=== PATIENT | female | born 1945 | race Caucasian/White ===

== ENCOUNTER 2018-09-02 14:23 | Inpatient (IN) ==
[2018-09-02] MEDS ORDERED: ceFAZolin 2 GM Premix Inj 2 GM/50 ML PIGGYBACK IV.SIG ONE (14:51)
[2018-09-02] MEDS ORDERED: Gentamicin/NS 80 mg Premix 100 ML IV.SIG ONE (14:55)
--- NOTE | 2018-09-02 15:02 | ED ---
HPI General Chief Complaint: Extremity Injury, Upper Stated Complaint: fall poss broken rt wrist Time Seen by Provider: 09/02/18 14:46 Source: patient Mode of arrival: ambulatory Limitations: no limitations History of Present Illness HPI narrative: Patient presents with complaints of right wrist fracture. States she was walking backwards when she stumbled and fell. States she thinks she got her hand out behind her to break her fall. Past medical history for Parkinson's. Denies osteoporosis. Denies any head trauma. Denies any loss of consciousness. Denies any new chest pain shortness of breath urinary or bowel symptoms. Last meal 11 AM/4 hours ago. Tetanus is not up-to-date MD complaint: injury to: Reports right and wrist Onset (ago): minute(s) (30) Other Extremity Injury: Right: wrist Other injuries: Reports none Handedness: right Place: outdoors Severity: severe Severity scale (1-10): 10 Relieving factors: cold therapy Exacerbating factors: movement of extremity Context: Reports fall Associated symptoms: Reports denies other symptoms Treatments prior to arrival: Reports cold therapy Related Data Home Medications Medication Instructions Recorded Confirmed carbidopa-levodopa tab PO QID 09/02/18 Allergies Allergy/AdvReac Type Severity Reaction Status Date / Time No Known Allergies Allergy Verified 09/02/18 14:51 Review of Systems ROS: all other systems reviewed are negative PMFSH Medical History Medical History Parkinson disease (Acute) Surgical History Surgical History No history of previous surgery (Acute) Social History Social History Substance History: No History of Abuse Second Hand Smoke Exposure: No Smoking Status: Never smoker How Often Do You Have a Drink Containing Alcohol: 4 or more times a week Recent Travel in [place] within the Last 8 Weeks: No Recent Out of Country Travel within the Last 8 Weeks: No Immunization History Tetanus Immunization: Unsure Exam Narrative Exam Narrative: GENERAL: Well-nourished, well-developed patient. SKIN: Focused skin assessment warm/dry. HEAD: Normocephalic. EYES: No scleral icterus. No injection or drainage. NECK: Supple, trachea midline. No JVD or lymphadenopathy. CARDIOVASCULAR: Regular rate and rhythm without murmurs, gallops, or rubs. RESPIRATORY: Breath sounds equal bilaterally. No accessory muscle use. GASTROINTESTINAL: Abdomen soft, normal bowel sounds, non-tender, nondistended. MUSCULOSKELETAL: No cyanosis, or edema. BACK: Nontender without obvious deformity. No CVA tenderness. Examination of the right wrist reveals an open gooseneck fracture with good radial pulse and capillary refill. Limited finger movement. Bleeding is controlled. Course Initial Documented Vital Signs Temperature 97.5 F L 09/02/18 14:36 Pulse Rate 71 09/02/18 14:36 Respiratory Rate 20 09/02/18 14:36 Blood Pressure 101/56 L 09/02/18 14:36 Pulse Oximetry 97 09/02/18 14:36 Last Documented Vital Signs Temperature 97.5 F L 09/02/18 14:36 Pulse Rate 71 09/02/18 14:36 Respiratory Rate 20 09/02/18 14:36 Blood Pressure 101/56 L 09/02/18 14:36 Pulse Oximetry 97 09/02/18 14:36 Medical Decision Making MDM Narrative Medical decision making narrative: Patient received IV Ancef and gentamicin. PCP is Wood. Dr. Higuera who is in agreement will admit. Consents were obtained prior to pain medication. Pain controlled with morphine. Patient made n.p.o. , sugar tong in place. Spoke with Dr. Ham who is in agreement will admit and [facility]. Medical Screen Exam Complete: Yes Emergency Medical Condition: Yes Differential Diagnosis Differential Diagnosis: Open ulnar fracture, open radial fracture, wrist dislocation Medical Records Medical records reviewed: Yes I reviewed the patient's medical records. Lab Data Result diagrams: 09/02/18 15:40 09/02/18 15:40 Lab Results 09/02/18 Range/Units 15:40 CBC w Diff Auto diff final WBC 6.5 (4.0-11.0) th/mm3 RBC 4.16 (4.00-5.30) mil/mm3 Hgb 13.5 (11.6-15.3) gm/dL Hct 40.1 (35.0-46.0) % MCV 96.4 (80.0-100.0) fL MCH 32.5 (27.0-34.0) pg MCHC 33.7 (32.0-36.0) % RDW 12.2 (11.6-17.2) % Plt Count 160 (150-450) th/mm3 MPV 9.7 (7.0-11.0) fL Neut % (Auto) 56.4 (16.0-70.0) % Lymph % (Auto) 33.1 (9.0-44.0) % [place] % (Auto) 7.9 (0.0-8.0) % Eos % (Auto) 1.4 (0.0-4.0) % Baso % (Auto) 1.2 (0.0-2.0) % Neut # (Auto) 3.7 (1.8-7.7) th/mm3 Lymph # (Auto) 2.1 (1.0-4.8) th/mm3 [place] # (Auto) 0.5 (0.0-0.9) th/mm3 Eos # (Auto) 0.1 (0.0-0.4) th/mm3 Baso # (Auto) 0.1 (0.0-0.2) th/mm3 WBC Differential . Differential Comment . Imaging Data Radiologist's impression: Wrist X-Ray 09/02/18 14:49 CONCLUSION: Right wrist fracture dislocation. Discharge Plan Discharge Disposition Patient Disposition: ED Admit(ED Internal Use Only) Discharge Condition Condition: Stable Discharge Order Discharge Orders: ED Use Only Admit Order (Routine); Ordered 09/02/18 Ordered By: Ted Nair Physicians Team ED Provider: Ted Nair Primary Care Provider: Anthony Muir Rxs /Orders / Referrals /Forms Prescriptions: No Action carbidopa-levodopa 25-100 mg Tablet PO QID RF: 0 Status ED Status: With Doctor
[2018-09-02] MEDS ORDERED: Morphine Sulfate Inj 2 MG/ML Vial IV.PUSH ONE ×2 (15:18→16:27)
--- NOTE | 2018-09-02 15:24 | XR ---
EXAM DATE: 09/02/2018 3:13 PM EST AGE/SEX: 73 years / Female INDICATIONS: Fell today, Right wrist injury, open fracture CLINICAL DATA: This is the patient's initial encounter. Patient reports that signs and symptoms have been present for 1 day and indicates a pain score of 9/10. MEDICAL/SURGICAL HISTORY: None. None. COMPARISON: [facility], WRIST LEFT COMPLETE ([id number]), 05/16/2015. . FINDINGS: 2 views of the right wrist. Fracture dislocation at the wrist noted with horizontal fracture of the d istal radius 1 cm proximal to the radiocarpal joint. One bone width lateral displacement of the dista l fragment of the radius. Lateral dislocation of the proximal carpal row relative to the ulna. CONCLUSION: Right wrist fracture dislocation. Electronically signed by: Chacorta Hart MD Board Certified Radiologist 09/02/2018 3:22 PM EST
[2018-09-02] MEDS ORDERED: Tetanus/Diphtheria Toxoid Adult Vaccine Inj 0.5 ML Vial IM ONE (15:45)
[2018-09-02 15:53] LABS: Baso # (Auto) 0.1 th/mm3 (0.0-0.2); Baso % (Auto) 1.2 % (0.0-2.0); Eos # (Auto) 0.1 th/mm3 (0.0-0.4); Eos % (Auto) 1.4 % (0.0-4.0); Hematocrit 40.1 % (35.0-46.0); Hemoglobin 13.5 gm/dL (11.6-15.3); Lymph # (Auto) 2.1 th/mm3 (1.0-4.8); Lymph % (Auto) 33.1 % (9.0-44.0); Mean Corpuscular HGB Conc 33.7 % (32.0-36.0); Mean Corpuscular Hemoglobin 32.5 pg (27.0-34.0); Mean Corpuscular Volume 96.4 fL (80.0-100.0); Mean Platelet Volume 9.7 fL (7.0-11.0); Mono # (Auto) 0.5 th/mm3 (0.0-0.9); Mono % (Auto) 7.9 % (0.0-8.0); Neut # (Auto) 3.7 th/mm3 (1.8-7.7); Neut % (Auto) 56.4 % (16.0-70.0); Platelet Count 160 th/mm3 (150-450); Red Blood Count 4.16 mil/mm3 (4.00-5.30); Red Cell Distribution Width 12.2 % (11.6-17.2); White Blood Count 6.5 th/mm3 (4.0-11.0)
[2018-09-02 16:08] LABS: Potassium 4.1 meq/L (3.5-5.1)
[2018-09-02] MEDS ORDERED: Acetaminophen 325 MG Tablet PO PRN (16:08)
[2018-09-02] MEDS ORDERED: Bisacodyl 10 MG Supp RECTAL PRN (16:08)
[2018-09-02 16:11] LABS: Calcium 9.1 mg/dL (8.5-10.1); INR 1.1 Ratio; Prothrombin Time 10.8 sec (9.8-11.6)
[2018-09-02 16:12] LABS: Carbon Dioxide 26.2 meq/L (21.0-32.0)
[2018-09-02] MEDS: Sod Chloride 0.9% Inj 1,000 ML IV.CONT SCH ×2 (17:07→22:46)
[2018-09-02] MEDS ORDERED: Morphine Sulfate Inj 2 MG/ML Vial IV.PUSH PRN (19:42)
[2018-09-02] MEDS ORDERED: Metoprolol Tartrate 25 MG Tablet PO ONE (19:59)
[2018-09-02] MEDS ORDERED: Chlorhexidine Gluconate 2% 1 Pack (2 Cloths) TOPICAL ONE (19:59)
[2018-09-02] MEDS ORDERED: Sodium Chlor 0.9% Inj 500 ML IV.SIG SCH (20:00)
[2018-09-02] MEDS ORDERED: Lidocaine PF 1% Inj 5 ML Syringe OTHER ONE (20:30)
[2018-09-02] MEDS ORDERED: Neostigmine Inj 5 MG/5 ML Syringe IV.PUSH ONE (20:30)
[2018-09-02] MEDS ORDERED: Glycopyrrolate Inj 1 MG/5 ML Syringe IV.PUSH ONE (20:30)
[2018-09-02] MEDS ORDERED: Phenylephrine/NS 1000 MCG/10ML Syringe IV.PUSH ONE (20:30)
--- NOTE | 2018-09-02 20:40 | P.CONOP ---
[facility] Orthopedics Consult [facility] - [facility] Consult date: 09/02/18 Consult reason: fracture Chief complaint: Open distal radial fracture Narrative: 73-year-old female who presents with complaints of right wrist pain. States she was walking backwards when she stumbled and fell. States she thinks she got her hand out behind her to break her fall. Past medical history for Parkinson's. Denies osteoporosis. Denies any head trauma. Denies any loss of consciousness. Denies any new chest pain shortness of breath urinary or bowel symptoms. Last meal 11 AM/4 hours ago. Tetanus is not up-to-date. Patient denies any head trauma. Review of Systems Denies fevers, chills, nausea, vomiting. Denies chest pain, cough, shortness of breath. Denies abdominal pain or change in urination. Denies back pain, weakness, numbness or tingling. Denies dizziness, blurry vision or throat pain. Reports right wrist pain PMFSH - History History Provided By: Patient - Medical History Medical History: Medical History (Last Reviewed 09/02/18 @ 14:59 by Ted Nair MD) Parkinson disease - Surgical History Surgical History: Surgical History (Last Reviewed 09/02/18 @ 14:59 by Ted Nair MD) No history of previous surgery - Tobacco History Second Hand Smoke Exposure: No Smoking Status: Never smoker - Alcohol History How Often Do You Have a Drink Containing Alcohol: 2 to 4 times a month - Substance Use History Substance History: No History of Abuse - Travel History Recent Travel in the [place] Within the Last 8 Weeks: No Recent Travel Out of the Country Within the Last 8 Weeks: No - Immunization History Tetanus Immunization: Unsure Hx Influenza Vaccine This Season: Yes Medications and Allergies Active Medications: Active Medications Acetaminophen (Tylenol) 650 mg PO Q4H PRN PRN Reason: Temp > 100.4 Al Hydroxide/Mg Hydroxide (Milk Of Magnesia Liq) 30 ml PO Q12H PRN PRN Reason: Mild Constipation Bisacodyl (Dulcolax Supp) 10 mg RECTAL DAILY PRN PRN Reason: SEVERE CONSITIPATION Sodium Chloride (Ns Inj) 1,000 mls @ 70 mls/hr IV.CONT .[id number] [facility] Last Admin: 09/02/18 17:07 Dose: 70 mls/hr Lactated Ringer's (Lr 1000 Ml Inj) 1,000 mls @ 30 mls/hr IV.SIG .Q24H [facility] Stop: 09/03/18 19:59 Sodium Chloride (Ns Inj) 500 mls @ 30 mls/hr IV.SIG .Q10H [facility] Lactulose (Lactulose Liq) 30 ml PO DAILY PRN PRN Reason: SEVERE CONSITIPATION Morphine Sulfate (Morphine Inj) 2 mg IV.PUSH Q3H PRN PRN Reason: pain > 3 Ondansetron HCl (Zofran Inj) 4 mg IV.PUSH Q6H PRN PRN Reason: NAUSEA OR VOMITING Senna/Docusate Sodium (Mima-Colace) 1 tab PO BID [facility] Sennosides (Senokot) 17.2 mg PO Q12H PRN PRN Reason: Moderate Constipation Sodium Chloride (Ns Flush) 2 ml IV.FLUSH BID [facility] Sodium Chloride (Ns Flush) 2 ml IV.FLUSH PRN PRN PRN Reason: FLUSH AFTER USING IV ACCESS Allergies Allergy/AdvReac Type Severity Reaction Status Date / Time No Known Allergies Allergy Verified 09/02/18 14:51 Home Medications Medication Instructions Recorded Confirmed Type carbidopa-levodopa tab PO QID 09/02/18 History Exam Vital signs: Vital Signs 09/02/18 14:36 09/02/18 17:44 09/02/18 18:32 Temperature 97.5 F L 97.1 F L Pulse Rate 71 87 86 Respiratory Rate 20 16 Blood Pressure 101/56 L 147/66 H 146/68 H Pulse Oximetry 97 97 98 Intake & Output 09/02/18 09/02/18 09/03/18 06:59 18:59 06:59 Intake Total 50 / 50 Balance 50 / 50 Weight 74 kg 74 kg Intake: IV 50 / 50 Ancef 2 GM Premix Inj 2 gm In 50 / 50 50 ml @ 100 mls/hr IV.SIG ONCE ONE Rx#:[id number] Other: Date of Last Bowel Movement 08/31/18 Weight On Admission 74 kg Narrative: Awake, alert, no acute distress Normocephalic Pupils equal No JVD Moist mucous membranes Nonlabored respirations Soft nontender abdomen Regular rate Right upper extremity: No tenderness to palpation or visible deformities. Full active range of motion and strength throughout. Sensation intact. Brisk cap refill. Left upper extremity:No tenderness to palpation or visible deformities. Full active range of motion and strength throughout. Sensation intact. Brisk cap refill. Right lower extremity: Deformity at the wrist with small wound concerning for open fracture. Patient is unable to wiggle fingers due to pain. Sensation appears grossly intact. Brisk cap refill Left lower extremity:No tenderness to palpation or visible deformities. Full active range of motion and strength throughout. Sensation intact. Brisk cap refill. No rash Normal affect Results - Labs Result Diagrams: 09/02/18 15:40 09/02/18 15:40 Labs: Laboratory Results - last 24 hr 09/02/18 09/02/18 09/02/18 15:40 15:40 15:40 CBC w Diff Auto diff final WBC 6.5 RBC 4.16 Hgb 13.5 Hct 40.1 MCV 96.4 MCH 32.5 MCHC 33.7 RDW 12.2 Plt Count 160 MPV 9.7 Neut % (Auto) 56.4 Lymph % (Auto) 33.1 [place] % (Auto) 7.9 Eos % (Auto) 1.4 Baso % (Auto) 1.2 Neut # (Auto) 3.7 Lymph # (Auto) 2.1 [place] # (Auto) 0.5 Eos # (Auto) 0.1 Baso # (Auto) 0.1 WBC Differential . Differential Comment . PT 10.8 INR 1.1 Sodium 145 Potassium 4.1 Chloride 111 H Carbon Dioxide 26.2 Anion Gap 8 BUN 21 H Creatinine 0.66 Estimated GFR 88 L Random Glucose 103 Calcium 9.1 - Diagnostic results Imaging: Impressions Wrist X-Ray 09/02/18 14:49 CONCLUSION: Right wrist fracture dislocation. Assessment and Plan - Assessment and Plan 73-year-old female with open right distal radius fracture Options of management were discussed with the patient. Given the open nature of her fracture, I have recommended urgent surgical intervention in the form of irrigation and debridement with open reduction internal fixation of her right distal radius fracture. Risks, benefits, alternatives were discussed. Risks of surgery including but not limited to: Persistent infection, neurovascular injury, wrist pain and/or stiffness, hardware malposition or failure, nonunion and/or malunion, possible need for further surgery, and other unforeseen complications were discussed with the patient. At this time patient has been n.p.o. since approximately 11 AM with plan for surgery today.
[2018-09-02] MEDS ORDERED: Bupivacaine/Epinephrine PF Inj 0.5% 30 ML Vial ONE (21:08)
[2018-09-02] MEDS ORDERED: Post-op Orders (for Pharmacy) OTHER STA (22:18)
--- NOTE | 2018-09-02 22:18 | P.BOP ---
Date of procedure: 09/02/18 Procedure: 1. I&D R wrist 2. ORIF R intra-articular DR saini, >3-part Implants: Synthes Anesthesia: GETA Surgeon: Sonia Ham MD Estimated blood loss (mL): 5 Tourniquet time (min): 65 Pathology: none sent Condition: stable Disposition: PACU
[2018-09-02] MEDS ORDERED: fentaNYL Citrate Inj 100 MCG/2 ML Ampul ONE (22:33)
--- NOTE | 2018-09-02 22:36 | XR ---
EXAM DATE: 09/02/2018 10:33 PM EST AGE/SEX: 73 years / Female INDICATIONS: ORIF right wrist. CLINICAL DATA: This is the patient's subsequent encounter. Patient reports that signs and symptoms h ave been present for 1 day and indicates a pain score of Nonresponsive. MEDICAL/SURGICAL HISTORY: None. None. COMPARISON: No prior exams available for comparison. FINDINGS: 2 images are recorded digitally in the operating room with C-arm during placement of a distal radial plate. CONCLUSION: Intraoperative images. Electronically signed by: Riley Hendricks MD Board Certified Radiologist 09/02/2018 10:35 PM EST
--- NOTE | 2018-09-02 23:51 | P.HPIM ---
History of Present Illness Primary Care Physician: Anthony Muir MD Ms. Rosales is a 73 year-old female who presented to the emergency room and [place] complaining of right wrist fracture. She was found to have an open right wrist fracture dislocation and was transferred to [facility] where she underwent repair by Dr. Ham. She was admitted under the hospitalist service for medical management of other chronic conditions. The patient was seen in her hospital room. She complains of right wrist pain postoperatively that is not relieved by the IV morphine that has been ordered. Her pain is severe and aching and worse when she is trying to move. She indicates that she has suffered from difficulty with balance for a long time now due to her Parkinson's. She states she was walking backwards and stumbled and fell holding her right wrist outward to brace her fall. She denies any recent fevers, chills, shortness of breath, chest pain, nausea, vomiting, or diarrhea. She indicates that she wants to go to her sister's house to recuperate from her surgery and is eager to be discharged. Inpatient Certification Inpatient Certification: I certify that the inpatient services were ordered in accordance with Medicare regulations governing the order. This includes certification that hospital inpatient services are reasonable and necessary and in the case of services not specified as inpatient-only under 42 CFR 419.22(n), that they are appropriately provided as inpatient services in accordance to with the 2-midnight benchmark under 43 CFR 412.3(e) Estimated Total Length of Stay (Days): 2 Plans for Post Hospital Care: Not yet determined Review of Systems Review of Systems: all other systems reviewed are negative [facility] Medical History Medical History Parkinson disease (Acute) Surgical History Surgical History History of tonsillectomy (Acute) Social History Social History Substance History: No History of Abuse Second Hand Smoke Exposure: No Smoking Status: Never smoker How Often Do You Have a Drink Containing Alcohol: 2 to 4 times a month Recent Travel in [facility] within the Last 8 Weeks: No Recent Out of Country Travel within the Last 8 Weeks: No Immunization History Tetanus Immunization: Unsure Hx Influenza Vaccine This Season: Yes Medications and Allergies Allergies Allergy/AdvReac Type Severity Reaction Status Date / Time No Known Allergies Allergy Verified 09/02/18 14:51 Home Medications Medication Instructions Recorded Confirmed Type carbidopa-levodopa tab PO QID 09/02/18 History amantadine HCl 100 mg PO TID 09/03/18 09/03/18 History venlafaxine 75 mg PO DAILY 09/03/18 09/03/18 History Active Medications: Active Medications Acetaminophen (Tylenol) 650 mg PO Q4H PRN PRN Reason: Temp > 100.4 Al Hydroxide/Mg Hydroxide (Milk Of Magnesia Liq) 30 ml PO Q12H PRN PRN Reason: Mild Constipation Bisacodyl (Dulcolax Supp) 10 mg RECTAL DAILY PRN PRN Reason: SEVERE CONSITIPATION Diphenhydramine HCl (Benadryl) 25 mg PO Q6H PRN PRN Reason: ITCHING Sodium Chloride (Ns Inj) 1,000 mls @ 70 mls/hr IV.CONT .[id number] [facility] Last Admin: 09/02/18 22:46 Dose: 70 mls/hr Lactated Ringer's (Lr 1000 Ml Inj) 1,000 mls @ 30 mls/hr IV.SIG .Q24H [facility] Stop: 09/03/18 19:59 Sodium Chloride (Ns Inj) 500 mls @ 30 mls/hr IV.SIG .Q10H [facility] Cefazolin Sodium 1 gm/ Sodium (Chloride) 100 mls @ 200 mls/hr IV.SIG Q8H [facility] Stop: 09/03/18 21:29 Lactulose (Lactulose Liq) 30 ml PO DAILY PRN PRN Reason: SEVERE CONSITIPATION Miscellaneous Information [place] [place] 1 each OTHER UNSCH PRN PRN Reason: SEE LABEL COMMENTS Stop: 09/03/18 22:28 Morphine Sulfate (Morphine Inj) 2 mg IV.PUSH Q3H PRN PRN Reason: pain > 3 Ondansetron HCl (Zofran Inj) 4 mg IV.PUSH Q6H PRN PRN Reason: NAUSEA OR VOMITING Senna/Docusate Sodium (Mima-Colace) 1 tab PO BID [facility] Sennosides (Senokot) 17.2 mg PO Q12H PRN PRN Reason: Moderate Constipation Sodium Chloride (Ns Flush) 2 ml IV.FLUSH BID [facility] Sodium Chloride (Ns Flush) 2 ml IV.FLUSH PRN PRN PRN Reason: FLUSH AFTER USING IV ACCESS Sodium Chloride (Ns Flush) 2 ml IV.FLUSH PRN PRN PRN Reason: FLUSH AFTER USING IV ACCESS Sodium Chloride (Ns Flush) 2 ml IV.FLUSH BID [facility] Physical Exam Vital signs: Vital Signs 09/02/18 14:36 09/02/18 17:44 09/02/18 18:32 Temperature 97.5 F L 97.1 F L Pulse Rate 71 87 86 Respiratory Rate 20 16 Blood Pressure 101/56 L 147/66 H 146/68 H Pulse Oximetry 97 97 98 09/02/18 20:00 09/02/18 22:21 09/02/18 22:25 Temperature 97.3 F L 97.6 F Pulse Rate 91 H 82 82 Respiratory Rate 20 16 22 Blood Pressure 148/66 H 125/59 L 113/53 L Pulse Oximetry 97 92 L 97 09/02/18 22:30 09/02/18 22:45 09/02/18 23:00 Temperature 97.8 F Pulse Rate 89 87 101 H Respiratory Rate 20 11 L 15 Blood Pressure 105/54 L 114/57 L 145/70 H Pulse Oximetry 98 98 95 Intake & Output 09/02/18 09/02/18 09/03/18 06:59 18:59 06:59 Intake Total 50 / 50 1105 / 1105 Output Total 125 / 125 Balance 50 / 50 980 / 980 Weight 74 kg 74 kg Intake: IV 50 / 50 1000 / 1000 NS Inj 1,000 ML @ 70 mls/hr IV. 1000 / 1000 CONT .[id number] [facility] Rx#: [id number] Ancef 2 GM Premix Inj 2 gm In 50 / 50 50 ml @ 100 mls/hr IV.SIG ONCE ONE Rx#:[id number] Oral 5 / 5 Anesthesia Amount 100 / 100 Output: Urine 125 / 125 Other: Date of Last Bowel Movement 08/31/18 Weight On Admission 74 kg Narrative: GENERAL: This is an overweight elderly female patient, complaining of right wrist pain. SKIN: No rashes. Skin is warm and dry. HEAD: Atraumatic. Normocephalic. EYES: No scleral icterus. No injection or drainage. ENT: Nose without bleeding, purulent drainage. NECK: Trachea midline. No JVD. CARDIOVASCULAR: Regular rate and rhythm without murmurs, gallops, or rubs. RESPIRATORY: Clear to auscultation. Breath sounds equal bilaterally. No wheezes , rales, or rhonchi. GASTROINTESTINAL: Abdomen soft, non-tender, nondistended. No guarding. MUSCULOSKELETAL: Extremities without clubbing, cyanosis. No calf tenderness. Right hand sensation intact, finger movement intact, capillary refill brisk. NEUROLOGICAL: Awake and alert. Mild parkinsonian-like tremors noted. Normal speech. . Results Labs CBC & Chem 7: 09/02/18 15:40 09/02/18 15:40 Imaging Impressions Wrist X-Ray 09/02/18 00:00 CONCLUSION: Intraoperative images. Wrist X-Ray 09/02/18 14:49 CONCLUSION: Right wrist fracture dislocation. Caprini VTE Risk Assessment Caprini VTE Risk Assessment: Moderate/High Risk (score >= 2) Caprini Risk Assessment Model: Point Value = 1 Point Value = 2 Point Value = 3 Point Value = 5 Age 41-60 Minor surgery BMI > 25 kg/m2 Swollen legs Varicose veins or History of unexplained or recurrent spontaneous Oral contraceptives or hormone replacement Sepsis (< 1 month) Serious lung disease, including pneumonia (< 1 month) Abnormal pulmonary function Acute myocardial infarction Congestive heart failure (< 1 month) History of inflammatory bowel disease Medical patient at bed rest Age 61-74 Arthroscopic surgery Major open surgery (> 45 min) Laparoscopic surgery (> 45 min) Malignancy Confined to bed (> 72 hours) Immobilizing plaster cast Central venous access Age >= 75 History of VTE Family history of VTE Factor V Leiden Prothrombin [id number] Lupus anticoagulant Anticardiolipin antibodies Elevated serum homocysteine Heparin-induced thrombocytopenia Other congenital or acquired thrombophilia Stroke (< 1 month) Elective arthroplasty Hip, pelvis, or leg fracture Acute spinal cord injury (< 1 month) Prophylaxis Regimen: Total Risk Factor Score Risk Level Prophylaxis Regimen 0-1 Low Early ambulation 2 Moderate Order ONE of the following: *Sequential Compression Device (SCD) *Heparin 5000 units SQ BID 3-4 Higher Order ONE of the following medications: *Heparin 5000 units SQ TID *Enoxaparin/Lovenox 40 mg SQ daily (WT < 150 kg, CrCl > 30 mL/min) *Enoxaparin/Lovenox 30 mg SQ daily (WT < 150 kg, CrCl > 10-29 mL/min) *Enoxaparin/Lovenox 30 mg SQ BID (WT < 150 kg, CrCl > 30 mL/min) AND/OR *Sequential Compression Device (SCD) 5 or more Highest Order ONE of the following medications: *Heparin 5000 units SQ TID (Preferred with Epidurals) *Enoxaparin/Lovenox 40 mg SQ daily (WT < 150 kg, CrCl > 30 mL/min) *Enoxaparin/Lovenox 30 mg SQ daily (WT < 150 kg, CrCl > 10-29 mL/min) *Enoxaparin/Lovenox 30 mg SQ BID (WT < 150 kg, CrCl > 30 mL/min) AND *Sequential Compression Device (SCD) Assessment and Plan Plan Ms. Rosales is a 73 year-old female who presented to the emergency room and [place] complaining of right wrist fracture. She was found to have an open right wrist fracture dislocation and was transferred to [facility] where she underwent repair by Dr. Ham. She was admitted under the hospitalist service for medical management of other chronic conditions. Open right wrist fracture -orthopedic surgeon consulted - appreciate Dr. Ham's assistance -Antibiotics: Ancef 1 gm IV q8h -Pain medication changed to [place] 5/325 every 4 hours as needed with morphine IV as needed breakthrough pain with bowel protocol to prevent constipation -Consult PT and OT to prevent debility Parkinson's -Resume home Sinemet and amantadine Depression -Resume home Effexor DVT prophylaxis -SCDs -chemoprophylaxis per orthopedic surgeon's recommendations . Discussed Condition With: Patient and RN . Discharge Planning: Patient would like to go to her sister's house upon discharge for recuperation Case management consulted for assistance with home health care/discharge planning H&P: Quality VTE Deep Vein Thrombosis/Pulmonary Embolism Present on Admission: No
[2018-09-03] MEDS: Senna/Docusate Sodium 8.6/50 MG Tablet PO SCH ×3 (00:10→20:41)
[2018-09-03] MEDS ORDERED: Morphine Sulfate Inj 2 MG/ML Vial IV.PUSH PRN (02:06)
[2018-09-03] MEDS: ceFAZolin Inj 1 GM in Sodium Chlor 0.9% Inj 100 ML IV.SIG SCH ×3 (04:02→20:40)
[2018-09-03] MEDS: Sod Chloride 0.9% Inj 1,000 ML IV.CONT SCH (06:33)
--- NOTE | 2018-09-03 07:03 | P.PNOP ---
Subjective Interval history: Resting comfortably but states she has had pain overnight. Physical Exam Vital signs: Vital Signs 09/02/18 14:36 09/02/18 17:44 09/02/18 18:32 Temperature 97.5 F L 97.1 F L Pulse Rate 71 87 86 Respiratory Rate 20 16 Blood Pressure 101/56 L 147/66 H 146/68 H Pulse Oximetry 97 97 98 09/02/18 20:00 09/02/18 22:21 09/02/18 22:25 Temperature 97.3 F L 97.6 F Pulse Rate 91 H 82 82 Respiratory Rate 20 16 22 Blood Pressure 148/66 H 125/59 L 113/53 L Pulse Oximetry 97 92 L 97 09/02/18 22:30 09/02/18 22:45 09/02/18 23:00 Temperature 97.8 F Pulse Rate 89 87 101 H Respiratory Rate 20 11 L 15 Blood Pressure 105/54 L 114/57 L 145/70 H Pulse Oximetry 98 98 95 09/03/18 00:00 09/03/18 04:00 Temperature 97.7 F 98.1 F Pulse Rate 95 H 97 H Respiratory Rate 18 Blood Pressure 132/60 120/58 L Pulse Oximetry 97 97 Intake & Output 09/02/18 09/03/18 09/03/18 18:59 06:59 18:59 Intake Total 50 / 50 1905 / 1905 Output Total 130 / 130 Balance 50 / 50 1775 / 1775 Weight 74 kg 79.4 kg Intake: IV 50 / 50 1000 / 1000 NS Inj 1,000 ML @ 70 mls/hr IV. 1000 / 1000 CONT .[id number] [facility] Rx#: [id number] Ancef 2 GM Premix Inj 2 gm In 50 / 50 50 ml @ 100 mls/hr IV.SIG ONCE ONE Rx#:[id number] Oral 5 / 5 Anesthesia Amount 900 / 900 Output: Urine 125 / 125 Estimated Blood Loss 5 / 5 Other: # Voids 300 Date of Last Bowel Movement 08/31/18 Weight On Admission 74 kg Narrative: Awake, alert, no acute distress Right upper extremity: Splint in place over forearm and wrist. Patient wiggles fingers. Sensation appears grossly intact. Brisk cap refill. Results - Labs CBC & Chem 7: 09/02/18 15:40 09/02/18 15:40 Laboratory Results - last 24 hr 09/02/18 09/02/18 09/02/18 15:40 15:40 15:40 CBC w Diff Auto diff final WBC 6.5 RBC 4.16 Hgb 13.5 Hct 40.1 MCV 96.4 MCH 32.5 MCHC 33.7 RDW 12.2 Plt Count 160 MPV 9.7 Neut % (Auto) 56.4 Lymph % (Auto) 33.1 [place] % (Auto) 7.9 Eos % (Auto) 1.4 Baso % (Auto) 1.2 Neut # (Auto) 3.7 Lymph # (Auto) 2.1 [place] # (Auto) 0.5 Eos # (Auto) 0.1 Baso # (Auto) 0.1 WBC Differential . Differential Comment . PT 10.8 INR 1.1 Sodium 145 Potassium 4.1 Chloride 111 H Carbon Dioxide 26.2 Anion Gap 8 BUN 21 H Creatinine 0.66 Estimated GFR 88 L Random Glucose 103 Calcium 9.1 - Imaging Impressions Wrist X-Ray 09/02/18 00:00 CONCLUSION: Intraoperative images. Wrist X-Ray 09/02/18 14:49 CONCLUSION: Right wrist fracture dislocation. Assessment and Plan - Assessment and Plan 73-year-old female with open right distal radius fracture, POD#1 s/p I&D, ORIF R 1. Nonweightbearing right upper extremity in splint. Splint to remain in place until follow-up 2. Physical therapy for mobilization. 3. Encouraged and instructed patient to work on finger range of motion. 4. 48 hours of antibiotics given open nature of fracture. This should complete by midday tomorrow and patient likely would be ready for discharge at that point 5. Patient may follow-up in my office in approximately 2 weeks for followup
--- NOTE | 2018-09-03 08:03 | P.OP ---
Date of procedure: 09/02/18 Procedure: 1. Irrigation and debridement right wrist for open fracture 2. Open reduction internal fixation intra-articular right displaced distal radius fracture, greater than 3 parts Implants: Synthes Anesthesia: KERIA Surgeon: Sonia Ham MD Estimated blood loss (mL): 5 Tourniquet time (min): 65 Pathology: none sent Operation and Findings: Indications for procedure: 73-year-old female who had a mechanical trip and fall onto her right arm. Patient was found to have an open right distal radius fracture with small ulnar styloid fracture. Patient initially was given tetanus update and antibiotics and transferred to [place] for definitive treatment. Options of management were discussed with the patient. Recommendation for surgical intervention given the open nature of her fracture. Risks, benefits, alternatives were discussed with the patient. At this time she consented to the above-mentioned procedure. Description of procedure: Patient was brought back to the operating room where general anesthesia then ensued. Patient was carefully positioned supine on the operating room table with all bony promises well-padded. Patient was prepped and draped in standard sterile fashion with a tourniquet on the upper arm. A timeout was performed to identify the correct patient, side, site and procedure to be performed. Preoperative antibiotics were given within 1 hour of incision. Initially, the open wound around the ulnar aspect of the distal wrist was assessed. This appeared to be approximately 3 cm in length and probed directly to both the distal ulna and distal radius. This was sharply debrided at the skin, subcutaneous tissue, fascia and bone with knife, curettes and rongeurs. This was then thoroughly irrigated with greater than 3 L of saline laden with antibiotics. A volar Rajesh approach was then made to the distal radius with sharp dissection through the skin and subtendinous tissue. Hemostasis was achieved with electrocautery. The FCR tendon sheath was incised and mobilized ulnarly. The floor of the FCR tendon sheath was already violated due to the fracture and this was further incised to allow access to the remaining distal radius and fracture site. The fracture site was cleaned of its soft tissue. The fracture was then reduced with the use of traction and rotation. There were multiple intra-articular bony fragments identified, approximately 5 pieces. A distal radius plate was then affixed and held temporarily with K wires. At this time, the fracture was found to be in acceptable alignment and distal locking screws were placed through the plate. Proximal nonlocking cortical screws were then placed. K wires were removed. The fracture appeared to be in acceptable alignment with buddhist of volar tilt and radial height and inclination. All hardware appeared to be out of the joint surface. The DRUJ was then evaluated. There was laxity in the DRUJ, however, and supination, this appeared significantly more stable. Given the open wound over the ulnar aspect of the ulna around the area where typically a percutaneous pin would be placed and the relative stability and supination, I elected to treat the DRUJ injury conservatively without pinning. Wounds were thoroughly irrigated with normal saline. The tourniquet was released and hemostasis achieved. The deep tissue was closed with PDS suture and the skin closed with nylon. Local anesthetic with half percent Marcaine with epinephrine was then utilized. Sterile dressings were applied along with a sugar tong splint and patient awoken from general anesthesia. Disposition: Patient will be nonweightbearing to the right upper extremity in the splint until follow-up. Patient will require 48 hours of antibiotics given the open nature of her injury.
[2018-09-03] MEDS: Venlafaxine XR 75 MG Capsule PO SCH (08:08)
[2018-09-03] MEDS: Amantadine 100 MG Capsule PO SCH ×3 (08:23→17:44)
--- NOTE | 2018-09-03 12:01 | P.PNIM ---
Subjective Interval history: Patient seen and examined this morning. Temperature 98.2, pulse 101, respiratory rate 19, blood pressure 119/57, pulse ox 96 on room air. Sitting in the chair appears comfortable. Does admit to some pain. Reports that the [place] works best for her. Pain management being managed by orthopedic surgery. Overall reports that she is doing okay at this time. She understands the plan of care at this time is to await final dosing of antibiotics which is scheduled for tomorrow before discharge. Physical Exam Vital signs: Vital Signs 09/02/18 14:36 09/02/18 17:44 09/02/18 18:32 Temperature 97.5 F L 97.1 F L Pulse Rate 71 87 86 Respiratory Rate 20 16 Blood Pressure 101/56 L 147/66 H 146/68 H Pulse Oximetry 97 97 98 09/02/18 20:00 09/02/18 22:21 09/02/18 22:25 Temperature 97.3 F L 97.6 F Pulse Rate 91 H 82 82 Respiratory Rate 20 16 22 Blood Pressure 148/66 H 125/59 L 113/53 L Pulse Oximetry 97 92 L 97 09/02/18 22:30 09/02/18 22:45 09/02/18 23:00 Temperature 97.8 F Pulse Rate 89 87 101 H Respiratory Rate 20 11 L 15 Blood Pressure 105/54 L 114/57 L 145/70 H Pulse Oximetry 98 98 95 09/03/18 00:00 09/03/18 04:00 09/03/18 08:00 Temperature 97.7 F 98.1 F 98.2 F Pulse Rate 95 H 97 H 101 H Respiratory Rate 18 19 Blood Pressure 132/60 120/58 L 119/57 L Pulse Oximetry 97 97 96 Intake & Output 09/02/18 09/03/18 09/03/18 18:59 06:59 18:59 Intake Total 50 / 50 2004 / 2004 Output Total 130 / 130 Balance 50 / 50 1874 / 1874 Weight 74 kg 79.4 kg Intake: IV 50 / 50 1100 / 1100 NS Inj 1,000 ML @ 70 mls/hr IV. 1000 / 1000 CONT .[id number] [facility] Rx#: [id number] Ancef 2 GM Premix Inj 2 gm In 50 / 50 50 ml @ 100 mls/hr IV.SIG ONCE ONE Rx#:[id number] Ancef Inj 1 GM In NS Inj 100 ML 100 / 100 @ 200 mls/hr IV.SIG Q8H [facility] Rx #:[id number] Oral Anesthesia Amount 900 / 900 Output: Urine 125 / 125 Estimated Blood Loss Other: # Voids 300 Date of Last Bowel Movement 08/31/18 08/31/18 Weight On Admission 74 kg Narrative: GEN: Well-developed, well-nourished elderly female patient. No acute distress. Sitting in the chair CV: Regular rate and rhythm without obvious murmurs LUNGS: Clear to auscultation bilaterally. Normal respiratory effort. No wheezes , rales, rhonchi. GI: Soft, nontender, nondistended. No palpable masses. Bowel sounds WNL. EXT: Right arm in soft splint. Not sitting still constantly moving NEURO/PSYCH: Afocal. Awake, alert, and oriented x3. Appropriate insight and judgment. Results - Labs CBC & Chem 7: 09/02/18 15:40 09/02/18 15:40 Laboratory Results - last 24 hr 09/02/18 09/02/18 09/02/18 15:40 15:40 15:40 CBC w Diff Auto diff final WBC 6.5 RBC 4.16 Hgb 13.5 Hct 40.1 MCV 96.4 MCH 32.5 MCHC 33.7 RDW 12.2 Plt Count 160 MPV 9.7 Neut % (Auto) 56.4 Lymph % (Auto) 33.1 [place] % (Auto) 7.9 Eos % (Auto) 1.4 Baso % (Auto) 1.2 Neut # (Auto) 3.7 Lymph # (Auto) 2.1 [place] # (Auto) 0.5 Eos # (Auto) 0.1 Baso # (Auto) 0.1 WBC Differential . Differential Comment . PT 10.8 INR 1.1 Sodium 145 Potassium 4.1 Chloride 111 H Carbon Dioxide 26.2 Anion Gap 8 BUN 21 H Creatinine 0.66 Estimated GFR 88 L Random Glucose 103 Calcium 9.1 - Imaging Impressions Wrist X-Ray 09/02/18 00:00 CONCLUSION: Intraoperative images. Wrist X-Ray 09/02/18 14:49 CONCLUSION: Right wrist fracture dislocation. Assessment and Plan - Assessment (1) Open fracture of right distal radius Code(s): S52.501B - Unspecified fracture of the lower end of right radius, initial encounter for open fracture type I or II Status: Acute (2) Fracture of ulnar styloid Code(s): S52.613A - Displaced fracture of unspecified ulna styloid process, initial encounter for closed fracture Status: Acute - Plan Ms. Rosales is a 73 year-old female who presented to the emergency room and [place] complaining of right wrist fracture. She was found to have an open right wrist fracture dislocation and was transferred to [facility] where she underwent repair by Dr. Ham. She was admitted under the hospitalist service for medical management of other chronic conditions. Open right wrist fracture -orthopedic surgeon consulted - appreciate Dr. Ham's assistance -Antibiotics: Ancef 1 gm IV q8h -Pain medication changed to [place] 5/325 every 4 hours as needed with morphine IV as needed breakthrough pain with bowel protocol to prevent constipation -Consult PT and OT to prevent debility -Anticipate discharge home tomorrow after completion of IV antibiotics Parkinson's -Resume home Sinemet and amantadine Depression -Resume home Effexor DVT prophylaxis -SCDs -chemoprophylaxis per orthopedic surgeon's recommendations . Discussed Condition With: Patient and RN . Discharge Planning: Patient would like to go to her sister's house upon discharge for recuperation Case management consulted for assistance with home health care/discharge planning Code Status: Full code Discharge Planning: Anticipate discharge home tomorrow
[2018-09-04] MEDS: Sod Chloride 0.9% Inj 1,000 ML IV.CONT SCH ×2 (05:39→12:18)
--- NOTE | 2018-09-04 06:19 | P.PNOP ---
Subjective Interval history: Resting comfortably states her pain is better controlled Physical Exam Vital signs: Vital Signs 09/03/18 08:00 09/03/18 12:00 09/03/18 16:00 Temperature 98.2 F 97.9 F 98.0 F Pulse Rate 101 H 100 H 100 H Respiratory Rate 19 18 19 Blood Pressure 119/57 L 113/56 L 127/66 Pulse Oximetry 96 95 94 L 09/03/18 20:47 09/03/18 23:58 09/04/18 03:22 Temperature 97.2 F L 98.7 F 98.3 F Pulse Rate 103 H 88 89 Respiratory Rate 18 16 18 Blood Pressure 122/54 L 112/56 L 116/57 L Pulse Oximetry 96 94 L 95 Intake & Output 09/03/18 09/03/18 09/04/18 06:59 18:59 06:59 Intake Total 2004 100 / 100 100 / 100 Output Total 130 / 130 Balance 1875 / 1875 100 / 100 100 / 100 Weight 79.4 kg Intake: IV 1100 / 1100 100 / 100 100 / 100 NS Inj 1,000 ML @ 70 mls/hr IV. 1000 / 1000 CONT .[id number] [facility] Rx#: [id number] Ancef Inj 1 GM In NS Inj 100 ML 100 / 100 100 / 100 100 / 100 @ 200 mls/hr IV.SIG Q8H [facility] Rx #:[id number] Oral 5 / 5 Anesthesia Amount 900 / 900 Output: Urine 125 / 125 Estimated Blood Loss 5 / 5 Other: # Voids 300 3 Date of Last Bowel Movement 08/31/18 08/31/18 08/31/18 Weight On Admission 74 kg Narrative: Awake, alert, no acute distress Right upper extremity: Splint in place over forearm and wrist. Patient is able to wiggle fingers and has full sensation. Brisk cap refill Results - Labs CBC & Chem 7: 09/02/18 15:40 09/02/18 15:40 Assessment and Plan - Assessment and Plan 73-year-old female with open right distal radius fracture, POD#2 s/p I&D, ORIF R 1. Nonweightbearing right upper extremity in splint. Splint to remain in place until follow-up 2. Physical therapy for mobilization. 3. Encouraged and instructed patient to work on finger range of motion. 4. Plan for discharge home today with follow-up in 2 weeks.
[2018-09-04] MEDS: Venlafaxine XR 75 MG Capsule PO SCH (10:00)
[2018-09-04] MEDS: Amantadine 100 MG Capsule PO SCH ×3 (10:00→17:19)
[2018-09-04] MEDS: Senna/Docusate Sodium 8.6/50 MG Tablet PO SCH ×2 (10:00→20:34)
--- NOTE | 2018-09-04 16:57 | P.PNIM ---
Subjective Interval history: Follow up for right distal radius fracture. Patient is a status post I&D, ORIF of right distal radius. She is currently resting in bed. Denies any chest pain, shortness of breath, fever or chills. She reports adequate pain control. She would like to go to SNF if possible. However, after talking to case management it appears that it might be difficult to arrange SNF due to upper extremity fracture. Physical Exam Vital signs: Vital Signs 09/03/18 20:47 09/03/18 23:58 09/04/18 03:22 Temperature 97.2 F L 98.7 F 98.3 F Pulse Rate 103 H 88 89 Respiratory Rate 18 16 18 Blood Pressure 122/54 L 112/56 L 116/57 L Pulse Oximetry 96 94 L 95 09/04/18 08:00 09/04/18 12:00 Temperature 98.4 F 99.4 F Pulse Rate 89 83 Respiratory Rate 18 17 Blood Pressure 119/61 121/59 L Pulse Oximetry 96 96 Intake & Output 09/03/18 09/04/18 09/04/18 18:59 06:59 18:59 Intake Total 100 / 100 580 / 580 Balance 100 / 100 580 / 580 Weight 79.3 kg Intake: IV 100 / 100 100 / 100 Ancef Inj 1 GM In NS Inj 100 ML 100 / 100 100 / 100 @ 200 mls/hr IV.SIG Q8H [facility] Rx #:[id number] Oral 480 / 480 Other: # Voids 3 3 Date of Last Bowel Movement 08/31/18 08/31/18 08/31/18 Narrative: GENERAL: Well-nourished, well-developed patient. SKIN: Warm and dry. HEAD: Normocephalic. EYES: No scleral icterus. No injection or drainage. NECK: Supple, trachea midline. No JVD or lymphadenopathy. CARDIOVASCULAR: Regular rate and rhythm without murmurs, gallops, or rubs. RESPIRATORY: Breath sounds equal bilaterally. No accessory muscle use. GASTROINTESTINAL: Abdomen soft, non-tender, nondistended. MUSCULOSKELETAL: No cyanosis, or edema. Right upper extremity splint in place. BACK: Nontender without obvious deformity. No CVA tenderness. Results Labs CBC & Chem 7: 09/02/18 15:40 09/02/18 15:40 Assessment and Plan (1) Open fracture of right distal radius: Code(s): S52.501B - Unspecified fracture of the lower end of right radius, initial encounter for open fracture type I or II Status: Acute (2) Fracture of ulnar styloid: Code(s): S52.613A - Displaced fracture of unspecified ulna styloid process, initial encounter for closed fracture Status: Acute Plan Ms. Rosales is a 73 year-old female who presented to the emergency room and [place] complaining of right wrist fracture. She was found to have an open right wrist fracture dislocation and was transferred to [facility] where she underwent repair by Dr. Ham. She was admitted under the hospitalist service for medical management of other chronic conditions. Right distal radius fracture -orthopedic surgeon consulted - pt is s/p I&D And ORIF Right distal radius. -[place], Morphine for pain management. -Ortho cleared for discharge. Pt wants to go to SNF. However, it maybe difficult to arrange. -Possible home with home health tomorrow if SNF cannot be arranged. -Nonweightbearing right upper extremity per Ortho. Parkinson's -Resume home Sinemet and amantadine Depression -Resume home Effexor Full code. Start Lovenox for DVT prophylaxis. Progress Note: Quality VTE Deep Vein Thrombosis/Pulmonary Embolism Present on Admission: No _ (1) Open fracture of right distal radius Qualifiers: Encounter type: Open fracture type: Fracture morphology: Fracture healing: (2) Fracture of ulnar styloid Qualifiers: Encounter type: Fracture type: Open fracture type: Fracture alignment: Laterality: Fracture healing:
[2018-09-04] MEDS: Enoxaparin Inj 40 MG/0.4 ML Syringe SQ SCH (17:19)
[2018-09-05] MEDS: Venlafaxine XR 75 MG Capsule PO SCH (10:17)
[2018-09-05] MEDS: Amantadine 100 MG Capsule PO SCH ×3 (10:17→17:19)
[2018-09-05] MEDS: Senna/Docusate Sodium 8.6/50 MG Tablet PO SCH (10:18)
--- NOTE | 2018-09-05 15:47 | P.DS ---
DS: Providers Date of admission: 09/02/18 15:59 Primary care physician: Anthony Muir MD Consults: 09/02/18 15:47 Consult to Orthopedic Surgery Stat Consulting Provider: Sonia Ham For STAT consult, spoke directly to:: Dr Ham Preferred Lease Administrator:: Sonia Hma Reason for Consultation: Open distal radial fracture Notified:: Service Spoke with:: tiffany Date Notified:: 09/02/18 Time Notified:: 17:00 Ordering Provider: RRREES 09/03/18 09:01 HUB Only Consult Order Routine Consulting Provider: [employer],Insurance 09/04/18 12:50 HUB Only Consult Order Routine Consulting Provider: [facility],Agency 09/04/18 16:27 HUB Only Consult Order Routine Consulting Provider: [employer] 09/05/18 07:44 HUB Only Consult Order Routine Consulting Provider: [employer]ency DS: Diagnosis Discharge Diagnosis (1) Open fracture of right distal radius: Status: Acute (2) Fracture of ulnar styloid: Status: Acute DS: Summary Ms. Rosales is a 73 year-old female who presented to the emergency room and [place] complaining of right wrist fracture. She was found to have an open right wrist fracture dislocation and was transferred to [facility] where she underwent repair by Dr. Ham. She was admitted under the hospitalist service for medical management of other chronic conditions. Right distal radius fracture -orthopedic surgeon consulted - pt is s/p I&D And ORIF Right distal radius. -[place], Morphine for pain management. -Ortho cleared for discharge. Pt wants to go to SNF. However, it maybe difficult to arrange. -Possible home with home health tomorrow if SNF cannot be arranged. -Nonweightbearing right upper extremity in splint. Splint to remain in place until follow-up with Orthopedic surgeon. Parkinson's -Resume home Sinemet and amantadine Depression -Resume home Effexor Full code. Start Lovenox for DVT prophylaxis. Checked [employer] database. No recent narcotic pain med use. Patient is s/p surgery. Orthopedic surgeon initially wrote prescription for [place] 5/325mg 1-2 tabs Q4hrs PRN #45. We could not find this Rx and thus I will re-write this Rx with same instructions. Time Spent with Patient Total time spent providing and/or coordinating discharge services: Less than 30 minutes Quality: VTE Deep Vein Thrombosis/Pulmonary Embolism Present on Admission: No Exam Narrative Exam Narrative: GENERAL: Well-nourished, well-developed patient. SKIN: Warm and dry. HEAD: Normocephalic. EYES: No scleral icterus. No injection or drainage. NECK: Supple, trachea midline. No JVD or lymphadenopathy. CARDIOVASCULAR: Regular rate and rhythm without murmurs, gallops, or rubs. RESPIRATORY: Breath sounds equal bilaterally. No accessory muscle use. GASTROINTESTINAL: Abdomen soft, non-tender, nondistended. MUSCULOSKELETAL: No cyanosis, or edema. Right upper extremity splint in place. BACK: Nontender without obvious deformity. No CVA tenderness. Results Impressions ITS Impressions Wrist X-Ray 09/02/18 14:49 CONCLUSION: Right wrist fracture dislocation. Discharge Plan Discharge Disposition Patient Disposition: 03 Discharge to SNF Discharge Condition Condition: Good Discharge Order Discharge Orders: Discharge Order (Routine); Ordered 09/05/18 Ordered By: Venkatesh Paez Discharge Details Anticipated Discharge Date: 09/05/18 Physicians Team ED Provider: Ted Nair Primary Care Provider: Anthony Muir Attending Provider: Venkatesh Paez Other Providers: Sonia Ham ; [employer],Insurance ; [facility] [employer],Agency ; [facility] Rxs /Orders / Referrals /Forms Prescriptions: New hydrocodone-acetaminophen [[place]] 5-325 mg tablet 1 - 2 tab PO Q4H Qty: 45 RF: 0 Continue carbidopa-levodopa 25-100 mg Tablet PO QID RF: 0 venlafaxine 75 mg capsule,extended release 24hr 75 mg PO DAILY RF: 0 amantadine HCl 100 mg capsule 100 mg PO TID RF: 0 Ambulatory Orders / Order Sets / DME: Walker With Front Wheels (1 each) (Routine) Location: Determined by Patient Ordered By: Venkatesh Paez Referrals: Sonia Ham MD [Physician] - See Instructions (Follow up within 2 weeks. ) Anthony Muir MD [Primary Care Provider] - See Instructions Discharge Instructions Patient Printed Instructions: Pain Management in Older Adults (DC), How to Choose and Use a Walker (GEN), How to Use a Sling (DC), Pain Management After Surgery (DC), Narcotic Safety (DC), Fall Prevention for Older Adults (ED) Additional Instructions: CONTACT PHYSICIAN REGARDING FEVER, INCREASED PAIN, BLEEDING, NUMBNESS OR ANY OTHER PROBLEMS OR CONCERNS.Your Health Problems: Goals to Promote Your Health: * To prevent worsening of your condition * To maintain your health at the optimal level Directions to Meet Your Goals: * Take your medications as prescribed * Follow your dietary instruction * Follow activity as directed * Keep your appointments as scheduled * Take your immunizations and boosters as scheduled * If your symptoms worsen call your PCP * If no PCP go to Urgent Care or Emergency Room Smoking is dangerous to your health. Avoid second hand smoke. You may reach the 24-hour crisis hotline for domestic abuse at . Status ED Status: Left Department Discharge Information Discharge Date/Time: 09/05/18 18:59 [facility]
[2018-09-05] MEDS: Enoxaparin Inj 40 MG/0.4 ML Syringe SQ SCH (17:19)
[2018-09-05 17:45] VITALS: BP 122/57; PULSE 87; RESP 19; TEMP 97.9; O2SAT 94
== END 2018-09-05 18:59 | DRG 512 ==
LOC: PHED 14:23 → PHEDH 15:59 → N06 18:49
PROVIDERS: ADMIT Hospitalist; ATTEND Hospitalist
DX: Z23 Encounter for immunization; S52.613A Displaced fracture of unspecified ulna styloid process, initial encounter for closed fracture; W01.0XXA Fall on same level from slipping, tripping and stumbling without subsequent striking against object, initial encounter; Y93.01 Activity, walking, marching and hiking; G20 Parkinson's disease; S52.571B Other intraarticular fracture of lower end of right radius, initial encounter for open fracture type I or II; F32.9 Major depressive disorder, single episode, unspecified
CPT/HCPCS: 73100; 76000; 80048; 85025; 85610; 90702; 90714; 90718; 90765; 90775; 94150; 96365; 96375; 97110; 97116; 97162; 97167; 97535; 99285; C1713; J0690; J1580; J1650; J2270; J2370; J2405; J2704; J2710; J3010; J7030; J7120